=== PATIENT | male | born 1935 | race Caucasian/White ===

== ENCOUNTER → 2017-11-10 | Outpatient (CLI) | payer MEDICARE ==
[~2017-11-10] MED LIST: ASPI-555 PO; ASTAXANTHIN PO; CETI10TA57 PO; CHOL100044 PO; FINA5TAB41 PO; HYDR-2534 PO; HYDR-4060 PO; ISOSORBIDE PO; METOPROLOL; NIFE60TA71 PO; NITR0.4T50 SL; OMEP20TA2 PO; OMEP20TA25 PO; ONE A DAY MVI PO; POTA20TA12 PO; TAMS0.4C32 PO; TELM80TA7 PO; TORS20TA4 PO; TRAZ-144 PO; UBID100C10 PO; UBIQ100C3 PO; [UNRECOGNIZED DRUG - OTHER] PO
== END | disposition home or self-care (01) ==
LOC: RAH 14:54
PROVIDERS: ATTEND Physical Medicine & Rehabilitation
DX: M48.061 Spinal stenosis, lumbar region without neurogenic claudication (principal); M54.16 Radiculopathy, lumbar region
CPT/HCPCS: 72131

== ENCOUNTER 2017-12-08 05:49 | Day surgery (SDC) | payer MEDICARE ==
[2017-12-04 10:56] VITALS: BP 189/93
[2017-12-04 12:10] VITALS: BP 174/84
[2017-12-08] VITALS (10 sets, daily range): BP systolic 154–175; BP diastolic 71–80
[~2017-12-08] VITALS: Ht 172.7 cm; Wt 94.3 kg
[~2017-12-08 05:49] MED LIST changes: -CHOL100044 PO; -HYDR-2534 PO; -OMEP20TA2 PO; -UBID100C10 PO
[2017-12-08] MEDS ORDERED: ISOVUE-M 200 20 ML VIAL IT ONE (07:07)
[2017-12-08] MEDS ORDERED: MORPHINE SULFATE 2 MG/ML 1ML SYG ONE (07:46)
== END 2017-12-08 12:30 | disposition home or self-care (01) ==
LOC: DAH 05:49
PROVIDERS: ATTEND Neurological Surgery
DX: M48.061 Spinal stenosis, lumbar region without neurogenic claudication (principal); M47.896 Other spondylosis, lumbar region
CPT/HCPCS: 62304; 72132; A4606; Q9966

== ENCOUNTER 2017-12-20 07:30 | Observation (INO) | payer MEDICARE ==
[2017-12-18 10:20] LABS: BASOPHILS % (AUTO) 1.4 % (0.0-5.0); EOSINOPHILS % (AUTO) 3.7 % (0.0-8.0); HEMATOCRIT 40.5 % (42-54); LYMPHOCYTES % (AUTO) 27.7 % (21.0-51.0); MEAN CORPUSCULAR HEMOGLOBIN 31.7 pg (27.0-33.0); MEAN CORPUSCULAR HGB CONC 35.8 g/dL (32.0-36.0); MEAN CORPUSCULAR VOLUME 88.6 fL (79-99); MONOCYTES % (AUTO) 9.2 % (3.0-13.0); PLATELET COUNT (AUTO) 241 K/uL (130-400); RED BLOOD CELL COUNT(AUTO) 4.57 MIL/uL (4.50-6.20); RED CELL DISTRIBUTION WIDTH 12.7 % (11.0-15.5); WHITE BLOOD COUNT (AUTO) 7.7 K/uL (4.8-10.8)
[2017-12-18 10:27] LABS: CREATININE 1.3 mg/dL (0.5-1.5); POTASSIUM 3.6 mmol/L (3.5-5.1)
[2017-12-18 10:45] VITALS: BP 172/85
[~2017-12-20] VITALS: Ht 172.7 cm; Wt 94.5 kg
[2017-12-20] MEDS: CEFAZOLIN SODIUM 1 GM VIAL IVP SCH (06:30)
[~2017-12-20 07:30] MED LIST changes: -TRAZ-144 PO; +TRAZ-185 PO
[2017-12-21] VITALS (20 sets, daily range): BP systolic 103–148; BP diastolic 38–89
[2017-12-21] MEDS ORDERED: LACTATED RINGERS 1000ML 1,000 ML IV ONE (06:31)
[2017-12-21] MEDS ORDERED: DURAMORPH PF1 MG/ML 10ML AMP IV ONE (06:37)
[2017-12-21] MEDS ORDERED: BUPIVACAINE/EPI/PF 0.25% 30ML VIAL IJ ONE (06:37)
[2017-12-21] MEDS ORDERED: THROMBIN-JMI 20000 UNIT KIT TP ONE (06:38)
[2017-12-21] MEDS ORDERED: BACITRACIN 50,000 UNIT VIAL ONE (06:38)
[2017-12-21] MEDS ORDERED: GLYCOPYRROLATE 0.2 MG/ML 5 ML VIAL ONE (07:02)
[2017-12-21] MEDS ORDERED: DEXAMETHASONE SOD PHOSPHATE 10MG/ML 1ML VIAL ONE (07:02)
[2017-12-21] MEDS ORDERED: LIDOCAINE PF 2% 5ML ABBOJECT ONE (07:02)
[2017-12-21] MEDS ORDERED: PROPOFOL 10 MG/ML 20ML VIAL IV ONE (07:03)
[2017-12-21] MEDS ORDERED: FENTANYL CITRATE PF 50 MCG/1 ML 2ML VIAL ONE ×2 (07:03→09:17)
[2017-12-21] MEDS ORDERED: MIDAZOLAM HCL 1 MG/ML 2ML VIAL ONE (07:03)
[2017-12-21] MEDS: CEFAZOLIN SODIUM 1 GM VIAL IVP SCH (07:42)
[2017-12-21] MEDS ORDERED: EPHEDRINE SULFATE 50 MG/ML AMPULE ONE ×2 (08:19→08:54)
[2017-12-21] MEDS ORDERED: FUROSEMIDE 10 MG/ML 4ML VIAL ONE (08:58)
[2017-12-21] MEDS ORDERED: UBID100C10 PO (09:08)
[2017-12-21] MEDS ORDERED: CHOL100044 PO (09:08)
[2017-12-21] MEDS ORDERED: HYDR-2534 PO (09:08)
[2017-12-21] MEDS ORDERED: NOREPINEPHRINE BITARTRATE 1 MG/1 ML ML IV ONE (09:17)
[2017-12-21] MEDS ORDERED: EPINEPHRINE 1 MG/ML AMPULE ONE (09:17)
[2017-12-21] MEDS ORDERED: SODIUM CHLORIDE 0.9% 10 ML VIAL IVP PRN (10:30)
[2017-12-21] MEDS ORDERED: NITROGLYCERIN 0.4 MG SL TAB SL PRN (10:30)
[2017-12-21] MEDS ORDERED: PROMETHAZINE HCL 25 MG/ML 1ML AMPULE IM PRN (10:30)
[2017-12-21] MEDS ORDERED: MORPHINE SULFATE 4 MG/1ML SYG IVP PRN (10:30)
[2017-12-21] MEDS: DEXAMETHASONE SOD PHOSPHATE 4 MG/ML 1ML VIAL IVP SCH ×2 (10:30→20:18)
[2017-12-21] MEDS ORDERED: FINASTERIDE 5 MG TABLET PO SCH (10:30)
[2017-12-21] MEDS ORDERED: HYDROCODONE/ACETAMINOPHEN 5/325 MG TAB PO PRN (10:30)
[2017-12-21] MEDS ORDERED: CEFAZOLIN 2GM / 50 ML 50 ML IV SCH (10:30)
[2017-12-21] MEDS ORDERED: CEFAZOLIN SODIUM 1 GM VIAL IVP SCH (10:45)
[2017-12-21] MEDS ORDERED: MEPERIDINE-PF 25 MG/ML SYG ONE ×2 (10:49→11:02)
[2017-12-21] MEDS ORDERED: NIFEDIPINE ER 30 MG TAB PO SCH (12:00)
[2017-12-21] MEDS: LACTATED RINGERS 1000ML 1,000 ML IV SCH ×2 (12:12→20:18)
[2017-12-21] MEDS: POTASSIUM CHLORIDE 20 MEQ ERTAB PO SCH (20:17)
[2017-12-21] MEDS: METOPROLOL TARTRATE 25 MG TAB PO SCH (20:17)
[2017-12-21] MEDS ORDERED: FAMOTIDINE 20MG TAB 20 MG TAB ONE (20:25)
[2017-12-21] MEDS ORDERED: OMEP20TA2 PO (20:27)
[2017-12-21] MEDS ORDERED: TAMSULOSIN HCL 0.4 MG CAP.ER.24H PO SCH (21:00)
[2017-12-21] MEDS ORDERED: MAG HYDROX/AL HYDROX/SIMETH ES 30 ML SUSP UDCUP PO PRN (23:00)
[2017-12-22] MEDS: DEXAMETHASONE SOD PHOSPHATE 4 MG/ML 1ML VIAL IVP SCH (04:35)
[2017-12-22 04:40] VITALS: BP 145/83
[2017-12-22 07:30] VITALS: BP 135/78
[2017-12-22] MEDS ORDERED: ASPIRIN 81 MG EC TAB PO SCH (09:00)
[2017-12-22] MEDS ORDERED: UBIDECARENONE 200 MG PO SCH (09:00)
[2017-12-22] MEDS ORDERED: **HM**Cholecalciferol (Vitamin D3) (Vitamin D) 1,000 UNIT PO SCH (09:00)
[2017-12-22] MEDS ORDERED: HYDROCHLOROTHIAZIDE 25 MG TABLET PO SCH (09:00)
[2017-12-22] MEDS ORDERED: PANTOPRAZOLE SODIUM 40 MG TABLET.DR PO SCH (09:00)
[2017-12-22] MEDS ORDERED: CETIRIZINE HCL 5 MG TABLET PO SCH (09:00)
[2017-12-22] MEDS ORDERED: ISOSORBIDE MONO 60 MG TAB.SR PO SCH (09:00)
[2017-12-22] MEDS: POTASSIUM CHLORIDE 20 MEQ ERTAB PO SCH (09:45)
[2017-12-22] MEDS: METOPROLOL TARTRATE 25 MG TAB PO SCH (09:45)
== END 2017-12-22 10:18 | disposition home or self-care (01) ==
LOC: EDSTATUS 09:00 → DAHIP 12-21 05:51 → INTOOBSV 12-21 05:51 → 4AH 12-21 11:22
PROVIDERS: ADMIT Neurological Surgery; ATTEND Neurological Surgery
DX: M48.061 Spinal stenosis, lumbar region without neurogenic claudication (principal); E78.00 Pure hypercholesterolemia, unspecified; I25.10 Atherosclerotic heart disease of native coronary artery without angina pectoris; I10 Essential (primary) hypertension; Z95.1 Presence of aortocoronary bypass graft; Z86.718 Personal history of other venous thrombosis and embolism; Z87.891 Personal history of nicotine dependence; Z98.1 Arthrodesis status; Z79.01 Long term (current) use of anticoagulants; Z79.899 Other long term (current) drug therapy
CPT/HCPCS: 36415; 63047; 63048; 72020; 80048; 85025; 96374; 96375; 96376 ×2; A4218 ×2; A4344; A4510; A4600; G0378 ×29; J0171; J0690 ×3; J1100 ×3; J1940; J2001; J2175 ×2; J2250; J2274; J2704; J3010 ×2; J3490 ×5; J7030; J7120 ×2

== ENCOUNTER → 2021-10-20 | Outpatient (CLI) | payer MEDICARE ==
[~2021-10-20] MED LIST changes: +ALBUTEROL 0.083% 2.5 MG/3 ML INH IH ONE; -ASPI-555 PO; +ASPI-556 PO; -ASTAXANTHIN PO; +CHOL100044 PO; -HYDR-4060 PO; +HYDR50TA PO; +NIFE-39 PO; -NIFE60TA71 PO; +OMEP20TA2 PO; -OMEP20TA25 PO; -ONE A DAY MVI PO; +POTA-193 PO; -POTA20TA12 PO; -TELM80TA7 PO; -TORS20TA4 PO; -TRAZ-185 PO; +UBID100C10 PO; -UBIQ100C3 PO; -[UNRECOGNIZED DRUG - OTHER] PO
== END | disposition home or self-care (01) ==
LOC: RESP 12:53
PROVIDERS: ATTEND Internal Medicine Cardiovascular Disease
DX: R06.02 Shortness of breath (principal)
CPT/HCPCS: 94060; 94727; 94729

== ENCOUNTER → 2021-10-21 | Outpatient (CLI) | payer MEDICARE ==
[~2021-10-21] MED LIST changes: -ALBUTEROL 0.083% 2.5 MG/3 ML INH IH ONE
== END | disposition home or self-care (01) ==
LOC: RAH 13:23
PROVIDERS: ATTEND Internal Medicine Cardiovascular Disease
DX: I11.0 Hypertensive heart disease with heart failure (principal); I50.9 Heart failure, unspecified; I35.8 Other nonrheumatic aortic valve disorders; E66.9 Obesity, unspecified; Z95.0 Presence of cardiac pacemaker; Z95.1 Presence of aortocoronary bypass graft
CPT/HCPCS: 93306

== ENCOUNTER → 2021-11-05 | Outpatient (CLI) | payer MEDICARE ==
[~2021-11-05] MED LIST changes: +REGADENOSON 0.4 MG/5 ML PF SYG IVP ONE
== END | disposition home or self-care (01) ==
LOC: SHCH 08:59
PROVIDERS: ATTEND Internal Medicine Cardiovascular Disease
DX: I25.10 Atherosclerotic heart disease of native coronary artery without angina pectoris (principal); Z95.1 Presence of aortocoronary bypass graft
CPT/HCPCS: 78452; 93017; 96374; A9500 ×2; J2785